=== PATIENT | female | born 2000 | race Asian ===

== ENCOUNTER 2022-05-15 22:25 | Emergency (ER) | payer BC ==
[2022-05-15] MEDS ORDERED: Acetaminophen 325 MG TAB ONE (23:27)
== END 2022-05-16 02:49 | disposition home or self-care (01) ==
LOC: ERS 22:25
DX: S82.892A Other fracture of left lower leg, initial encounter for closed fracture (principal); V00.848A Other accident with standing micro-mobility pedestrian conveyance, initial encounter